=== PATIENT | male | born 1955 | race American Indian/Alaskan Native ===

== ENCOUNTER 2021-07-29 00:02 | Emergency (ER) | payer SELFPAY ==
[2021-07-29 02:21] VITALS: BP 249/126
[2021-07-29] MEDS ORDERED: hydrALAZINE 20 MG/1 ML INJ IV ONE (02:44)
[2021-07-29 03:14] LABS: Bilirubin,Urine NEG (Negative); Blood,Urine SM (Negative); Color,Urine Yellow (Yellow); Mucus,Urine FEW /HPF; Protein,Urine <15 mg/dL mg/dL (Negative); Urobilinogen,Urine < 2.0 mg/dL (<2.0)
[2021-07-29 03:18] LABS: Basophils % (Auto) 0.7 % (0.0-1.8); Eosinophils # (Auto) 0.1 K/mm3 (0.0-0.4); Eosinophils % (Auto) 2.3 % (0.0-4.3); Hematocrit 44.8 % (35.5-45.6); Hemoglobin 14.2 gm/dl (11.8-15.2); Lymphocytes % (Auto) 34.3 % (13.4-35.0); Mean Corpuscular HGB Conc 32 % (32-34); Mean Corpuscular Volume 89 fl (84-94); Monocytes # (Auto) 0.6 K/mm3 (0.0-0.8); Monocytes % (Auto) 10.5 % (0.0-7.3); Platelet Count 243 K/mm3 (140-440); Red Blood Count 5.03 M/mm3 (3.65-5.03); Red Cell Distribution Width 14.7 % (13.2-15.2)
[2021-07-29 03:28] LABS: Alanine Aminotransferase 23 units/L (7-56); Albumin 3.6 g/dL (3.9-5); BUN/Creatinine Ratio 16; Blood Urea Nitrogen 19 mg/dL (9-20); Calcium 8.9 mg/dL (8.4-10.2); Hemolysis Index 49
[2021-07-29] MEDS ORDERED: LIDOCAINE-MPF (1%) 10 MG/1 ML VIAL 5 ML INFILTRATI ONE (03:41)
[2021-07-29] MEDS ORDERED: cloNIDine 0.1 MG TAB PO ONE (03:41)
--- NOTE | 2021-07-29 03:46 | Cat Scan Report ---
CT ABDOMEN AND PELVIS WITHOUT IV CONTRAST INDICATION: HEMATURIA. COMPARISON: None available. TECHNIQUE: All CT scans at this facility use dose modulation, automated exposure control, iterative reconstructi on or weight based dosing, when appropriate, to reduce radiation dose to as low as reasonably achieva ble. FINDINGS: Lung Bases: No significant abnormality. Skeletal System: No acute abnormality. ABDOMEN: Liver: No significant abnormality. Gallbladder: No significant abnormality. Bile Ducts: No significant abnormality. Adrenals: No significant abnormality. Right Kidney: No significant abnormality. Left Kidney: No significant abnormality. Pancreas: No significant abnormality. Spleen: No significant abnormality. Upper GI tract: No significant abnormality. Lymph Nodes: No significant adenopathy. Aorta: No significant abnormality. Additional Findings: Midline rectus diastases is noted. PELVIS: Colon: No acute abnormality. Urinary Bladder and Distal Ureters: No significant abnormality. Appendix: No significant abnormality. Lymph Nodes: No significant adenopathy. Additional Findings: None. IMPRESSION: 1. Within the limitations of non contrast technique, no acute process in the abdomen or pelvis. Signer Name: Julien Duenas MD Signed: 07/29/2021 3:42 AM Workstation Name: [id number] [place]
--- NOTE | 2021-07-29 04:31 | Emergency Department Report ---
ED Male HPI - General Chief complaint: Urogenital-Male Stated complaint: BLOOD IN URINE Source: patient Mode of arrival: Ambulatory Limitations: No Limitations - History of Present Illness Initial comments: Patient is a 65-year-old -[place] male with a history of morbid obesity who presents to the ED with complaint of acute onset persistent dysuria, urinary frequency and urgency, intermittent hematuria for the last 12 hours. Patient states that he has had 2 episodes of hematuria but that dysuria and urinary frequency and urgency have worsened. Patient denies fall, traumatic injury, low back pain, chest pain, shortness of breath, fever, chills, cough, sore throat, penile discharge, traumatic injury, abdominal pain, dizziness, headache or numbness and tingling or weakness of lower extremities bilaterally. MD Complaint: dysuria, other (Urinary frequency and urgency; hematuria intermittently) -: Sudden, hour(s) (12) Location: penis Radiation: none Severity: moderate Severity scale (0 -10): 4 Quality: burning, sharp Consistency: intermittent Improves with: none Worsens with: urination denies other symptoms, blood in urine, dysuria. denies: discharge, swelling, mass, rash, urinary retention, fever, nausea/vomiting, incontinence - Related Data Sexually active: No Previous Rx's Medication Instructions Recorded Last Taken Type Ibuprofen [Motrin] 800 mg PO Q8HR PRN #24 tablet 07/29/21 Unknown Rx Lisinopril/Hydrochlorothiazide 1 tab PO QDAY #30 tab 07/29/21 Unknown Rx [Zestoretic 20-12.5 mg] Phenazopyridine [Pyridium] 200 mg PO TID #21 tab 07/29/21 Unknown Rx Sulfamethoxazole/Trimethoprim 1 each PO BID #20 tab 07/29/21 Unknown Rx [Bactrim DS TAB] Allergies Allergy/AdvReac Type Severity Reaction Status Date / Time No Known Allergies Allergy Verified 07/29/21 02:10 ED Review of Systems ROS: Stated complaint: BLOOD IN URINE Other details as noted in HPI Constitutional: denies: chills, fever Eyes: denies: eye pain, eye discharge, vision change ENT: denies: ear pain, throat pain Respiratory: denies: cough, shortness of breath, wheezing Cardiovascular: denies: chest pain, palpitations Endocrine: no symptoms reported Gastrointestinal: denies: abdominal pain, nausea, diarrhea Genitourinary: urgency, dysuria, frequency, hematuria Musculoskeletal: denies: back pain, joint swelling, arthralgia Skin: denies: rash, lesions Neurological: denies: headache, weakness, paresthesias Psychiatric: denies: anxiety, depression Hematological/Lymphatic: denies: easy bleeding, easy bruising ED Past Medical Hx - Past Medical History Previous Medical History?: Yes Additional medical history: obesity - Surgical History Past Surgical History?: No - Medications Home Medications: Home Medications Medication Instructions Recorded Confirmed Last Taken Type Ibuprofen [Motrin] 800 mg PO Q8HR PRN #24 tablet 07/29/21 Unknown Rx Lisinopril/Hydrochlorothiazide 1 tab PO QDAY #30 tab 07/29/21 Unknown Rx [Zestoretic 20-12.5 mg] Phenazopyridine [Pyridium] 200 mg PO TID #21 tab 07/29/21 Unknown Rx Sulfamethoxazole/Trimethoprim 1 each PO BID #20 tab 07/29/21 Unknown Rx [Bactrim DS TAB] ED Physical Exam - General Limitations: No Limitations General appearance: alert, in no apparent distress, obese - Head Head exam: Present: atraumatic, normocephalic, normal inspection - Eye Eye exam: Present: normal appearance, PERRL, EOMI Pupils: Present: normal accommodation - ENT ENT exam: Present: normal exam, normal orophraynx, mucous membranes moist, TM's normal bilaterally, normal external ear exam - Neck Neck exam: Present: normal inspection, full ROM. Absent: tenderness - Respiratory Respiratory exam: Present: normal lung sounds bilaterally. Absent: respiratory distress, wheezes, rhonchi, chest wall tenderness, decreased breath sounds, prolonged expiratory - Cardiovascular Cardiovascular Exam: Present: regular rate, normal rhythm, normal heart sounds. Absent: systolic murmur, diastolic murmur, rubs, gallop - GI/Abdominal GI/Abdominal exam: Present: soft, normal bowel sounds. Absent: tenderness, guarding, rebound, hyperactive bowel sounds, hypoactive bowel sounds, mass, bruit - Extremities Exam Extremities exam: Present: normal inspection, full ROM, normal capillary refill - Back Exam Back exam: Present: normal inspection, full ROM. Absent: tenderness, CVA tenderness (R), CVA tenderness (L), muscle spasm, paraspinal tenderness, vertebral tenderness - Neurological Exam Neurological exam: Present: alert, oriented X3, CN II-XII intact, normal gait, reflexes normal - Psychiatric Psychiatric exam: Present: normal affect, normal mood - Skin Skin exam: Present: warm, dry, intact, normal color. Absent: rash ED Course Vital Signs 07/29/21 02:07 Temperature 98.9 F Pulse Rate 99 H Respiratory 18 Rate Blood Pressure 249/126 [Right] O2 Sat by Pulse 97 Oximetry ED Medical Decision Making - Lab Data Result diagrams: 07/29/21 02:50 07/29/21 02:50 - Medical Decision Making This is a 65-year-old -[place] male with a history of morbid obesity who presents to the ED with complaint of acute onset persistent dysuria, urinary frequency and urgency, intermittent hematuria for the last 12 hours. Patient states that he has had 2 episodes of hematuria but that dysuria and urinary frequency and urgency have worsened. In the ED, patient is alert and oriented x3 and is not in any distress but hypertensive in triage. Lab test results were reviewed and showed significant urinary tract infection. Patient was treated in the ED with Rocephin 1 g intramuscular injection and also given oral clonidine 0.1 mg p.o. x1. Patient was discharged home on antibiotics as well as antihypertensive medication and was advised to follow-up with his primary care physician in 7 to 10 days for reevaluation or return to the ED immediately if symptoms get worse. - Differential Diagnosis UTI; cystitis; kidney stone; prostatitis; bladder cancer Critical care attestation.: If time is entered above; I have spent that time in minutes in the direct care of this critically ill patient, excluding procedure time. ED Disposition Clinical Impression: Acute urinary tract infection, Dysuria, Hematuria due to acute cystitis, Uncontrolled stage 2 hypertension Disposition: 01 HOME / SELF CARE / HOMELESS Is pt being admited?: No Does the pt Need Aspirin: No Condition: Stable Instructions: Hypertension (ED), Urinary Tract Infection, Adult, [id number], Dysuria, Hypertension, Adult, [id number] Additional Instructions: All lab test results were reviewed and are all nonactionable except for urinary tract infection in urinalysis. Your symptoms are likely due to acute urinary tract infection or bladder infection. Therefore take medications as advised with food, drink plenty of fluids. Consider taking the blood pressure medication that has been given to you is a prescription with 1 refill. Follow- up with your primary care physician in 7 to 10 days for reevaluation or return to the ED immediately if your symptoms get worse. Prescriptions: Sulfamethoxazole/Trimethoprim [Bactrim DS TAB] 1 each PO BID #20 tab Ibuprofen [Motrin] 800 mg PO Q8HR PRN #24 tablet PRN Reason: Pain , Severe (7-10) Phenazopyridine [Pyridium] 200 mg PO TID #21 tab Lisinopril/Hydrochlorothiazide [Zestoretic 20-12.5 mg] 1 tab PO QDAY #30 tab Referrals: [facility] [Provider Group] - 7-10 days [facility] [Outside] - 7-10 days Time of Disposition: 04:31 Print Language: SAO TOMEAN
== END 2021-07-29 05:35 | disposition home or self-care (01) ==
LOC: ED 00:02
DX: N39.0 Urinary tract infection, site not specified (principal); R30.0 Dysuria; I10 Essential (primary) hypertension
CPT/HCPCS: 36415; 74176; 80053; 81001; 85025; 96372; 96374; 99284; J0696; J3490